=== PATIENT | female | born 1935 ===

== ENCOUNTER 2018-02-25 10:23 | Emergency (ER) | payer MEDICARE, BC ==
[2018-02-25 10:57] VITALS: BP 135/78
--- NOTE | 2018-02-25 11:16 | UC ---
Back Pain HPI - HPI Summary HPI Summary: Low back pain since December. It radiates down the right leg. No foot/ankle numbness or weakness. There is no assicated fever or abd pain. She has had chronic back pain but this radiation is new. it hurts more to walk and bend and lift. - History of Current Complaint Chief Complaint: UCLowerExtremity Stated Complaint: LOWER BACK PAIN Time Seen by Provider: 02/25/18 10:34 Hx Obtained From: Patient, Family/Correctional Supply Supervisor Onset/Duration: Gradual Onset, Lasting Weeks Timing: Constant Severity Initially: Moderate Severity Currently: Severe Pain Intensity: 10 Back Pain: Is Diffuse - right lower back. Character: Dull, Aching, Stiffness Aggravating Factor(s): Movement, Lifting, Bending, Walking Alleviating Factor(s): Rest, Position Associated Signs And Symptoms: Positive: Pain with Weight Bearing. Negative: Swelling, Redness, Bruising, Fever, Weakness, Numbness, Tingling, Abdominal Pain , Flank Pain, Bladder Incontinence, Bowel Incontinence, Weight Loss - Allergies/Home Medications Allergies/Adverse Reactions: Allergies Allergy/AdvReac Type Severity Reaction Status Date / Time ibuprofen Allergy See Comment Verified 02/25/18 10:44 Home Medications: Home Medications Acetaminophen [Acetaminophen Extra Strength] 1,000 mg PO Q8H 02/25/18 [History Confirmed 02/25/18] Cholecalciferol TAB* [Vitamin D TAB*] 2,000 unit PO DAILY 02/25/18 [History Confirmed 02/25/18] Febuxostat [Uloric] 40 mg PO DAILY 02/25/18 [History Confirmed 02/25/18] Hydralazine HCl 25 mg PO BID 02/25/18 [History Confirmed 02/25/18] Nebivolol HCl [Bystolic] 10 mg PO BID 02/25/18 [History Confirmed 02/25/18] Valsartan/HCTZ 160/12.5(NF) [Diovan HCT 160/12.5 (NF)] 1 tab PO DAILY 02/25/18 [ History Confirmed 02/25/18] cloNIDine HCl [Catapres 0.1 MG TAB] 0.1 mg PO BID 02/25/18 [History Confirmed ] PMH/Surg Hx/FS Hx/Imm Hx Previously Healthy: No - CKD stage III, HTN. chronic low back pain. - Surgical History Surgery Procedure, Year, and Place: D&C - Family History Known Family History: Positive: Other - no related back disease in family. - Social History Lives: With Family Alcohol Use: None Substance Use Type: None Smoking Status (MU): Never Smoked Tobacco Review of Systems Musculoskeletal: Decreased ROM, Myalgia All Other Systems Reviewed And Are Negative: Yes Physical Exam Triage Information Reviewed: Yes Appearance: Well-Appearing - comfortable at rest, she has obvious pain with walking to exam table., No Pain Distress, Obese Vital Signs: Initial Vital Signs Temp 98.6 F 02/25/18 10:40 Pulse 58 02/25/18 10:40 Resp 16 02/25/18 10:40 BP 135/78 02/25/18 10:40 Pulse Ox 99 02/25/18 10:40 Vital Signs Reviewed: Yes Eyes: Positive: Conjunctiva Clear. Negative: Conjunctiva Inflamed ENT: Positive: Normal ENT inspection, Pharynx normal Neck: Positive: Supple, Nontender, No Lymphadenopathy Respiratory: Positive: Lungs clear, Normal breath sounds, No respiratory distress, No accessory muscle use. Negative: Respiratory distress, Decreased breath sounds, Accessory muscle use, Crackles, Rhonchi, Stridor Cardiovascular: Positive: RRR, No Murmur, Brisk Capillary Refill Abdomen Description: Positive: Nontender, No Organomegaly, Soft. Negative: Distended, Guarding Musculoskeletal Exam: Other - There is mild low back percussion tenderness. Seh has pain with straight leg raise. Reflexes 1/4 gee and symmetric. Pin prick intact gee LE. Neurological: Positive: Alert, Muscle Tone Normal, Fatigued Psychological: Positive: Age Appropriate Behavior Skin: Negative: rashes Back Pain Course/Dx - Course Course Of Treatment: No signs of abd aneurysm. No signs of stone, bladder or abd problems. There is pain radiating down the leg and this may be sciatica. No obvious signs of radiculopathy. X ray to start. They are requesting referral to Dr. Tom Yoon. PT referral also placed. We had a long discussion regarding pain meds. We will try norco versus flexeril to see which one works better. They know not to do both at the same time. They were also warned about sedation and weakness and how to prevent falls. x ray shows spodylolisthesis and DDD/ arthritic changes. - Differential Dx/Diagnosis Provider Diagnoses: low back pain. spondylolisthesis. sciatica. Discharge - Sign-Out/Discharge Documenting (check all that apply): Discharge - Discharge Plan Condition: Good Disposition: HOME Prescriptions: Cyclobenzaprine TAB* [Flexeril 10 MG TAB*] 10 mg PO BID PRN #40 tab PRN Reason: Pain HYDROcodone/ACETAMIN 5-325 MG* [[place] 5-325 TAB*] 1 tab PO Q4H PRN #40 tab MDD 5 PRN Reason: Pain Patient Education Materials: Sciatica (ED), Lower Back Exercises (ED), Spondylolisthesis (ED) Referrals: Dominguez Vega MD [Primary Care Provider] - Ara HAHN,Tom Bob [Medical Doctor] - Additional Instructions: As we discussed, be careful while taking the pain meds. You may get tired and have increased risk for fall. Take all necessary precautions. - Billing Disposition and Condition Condition: GOOD Disposition: HOME
--- NOTE | 2018-02-25 11:30 | RAD ---
HISTORY: Low back pain radiating down leg COMPARISONS: None VIEWS: 2 , Frontal and lateral views of the lumbar spine FINDINGS: ALIGNMENT: There is grade 1 anterolisthesis of L3 on L4 and L4-L5. VERTEBRAL BODIES: The vertebral body heights are normal. The interpedicular distances are normal. JOINTS: There is diffuse facet osteoarthritis most pronounced at L3-L4, L4-L5, and L5-S1 INTERVERTEBRAL DISCS: There is diffuse loss of intervertebral disc height. SOFT TISSUE: There is atherosclerosis of the aorta. OTHER: There is mild osteoarthritis of the hips and SI joints. IMPRESSION: 1. DEGENERATIVE DISC DISEASE AND OSTEOARTHRITIS. 2. 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 3. ATHEROSCLEROSIS
== END 2018-02-25 11:40 | disposition home or self-care (01) ==
LOC: UCCORT 10:23
DX: M54.5 Low back pain (principal); M43.10 Spondylolisthesis, site unspecified; M54.30 Sciatica, unspecified side; Z88.6 Allergy status to analgesic agent; I12.9 Hypertensive chronic kidney disease with stage 1 through stage 4 chronic kidney disease, or unspecified chronic kidney disease; N18.3 Chronic kidney disease, stage 3 (moderate); G89.29 Other chronic pain
CPT/HCPCS: 72100; 99202; G0463